=== PATIENT | female | born 1960 | race Caucasian/White ===

== ENCOUNTER → 2020-11-04 13:21 | Outpatient (CLI) | payer OTHER, SELFPAY ==
[2020-11-06 13:05] LABS: HPV Reflexed? NOT INDICATED
== END ==
PROVIDERS: Visit Provider Obstetrics & Gynecology
DX: Z12.4 Encounter for screening for malignant neoplasm of cervix (principal)
CPT/HCPCS: 88175; G0145

== ENCOUNTER 2020-11-23 05:52 | Day surgery (SDC) | payer OTHER, SELFPAY ==
--- NOTE | 2020-11-22 12:35 | HP.PCM_ITS ---
History and Physical Date of Admission: 11/23/20 Surgical History and Physical Lizzy Barone, a 60 year old female 0 1 0 1 2, presents for D and C and hysteroscopy on November 23, 2020 at 10:30. -- [employer] Bleeding -- Postmenopausal bleeding which began 10-15-20. Lizzy claims it started after taking natural supplement for anxiety and has been present 5 days. It is located in the Uterus. Associated signs and symptoms are cramping. Additional comments are: took Ashwagandha supplement for anxiety. MEDICATIONS HISTORY: Patient is also takin. One A Day Women's DHA [id number] mg-mcg-mg Combo Pack, daily ALLERGIES: NKA Infections - Chicken pox Illnesses - anosmia, infertility and Kallmann's syndrome Accidents - no injuries of consequence Hospitalizations - see surgery Review of Systems: GENERAL - Denies fever, or chills SKIN - Denies skin changes EYES - wears contact lenses EARS - Denies difficulty hearing NOSE - Denies nasal congestion or bleeding MOUTH - Denies sore throat or difficulty swallowing NECK - Denies pain or swelling RESPIRATORY - Denies shortness of breath or wheezing CARDIOVASCULAR - Denies palpitations or chest pain GASTROINTESTINAL - Denies nausea, vomiting, diarrhea, constipation GENITOURINARY - frequency MUSCULOSKELETAL - Denies joint or muscle pain NEUROLOGICAL - Denies localized numbness or weakness PSYCHIATRIC - Denies depression or anxiety ENDOCRINE - Denies heat or cold intolerance, weight loss or gain HEMATO-IMMUNOLOGIC - Denies excesive bleeding with cuts SOCIAL HISTORY: Alcohol Use - socially Smoking - denies smoking Diet - balanced Diet Lifestyle - moderate stress lifestyle Exercise - minimal Seat Belt Use - always Employer - [employer] Job Description - [employer] Illicit Drug Use - denies use of street drugs Sexual Activity - single sexual partner and Hours Worked - 36 Spouse-Sig Other Name - JOSE Spouse-Sig Other Occupation - [employer] Children Name(s) - MAMI ARGUETA Control - postmenopausal FAMILY HISTORY: Family history of colonic polyps. Maternal history of lung cancer. Father: anerysm and hrt dx and Renal CA. Sister: colon cancer. Maternal Grandfather: throat cancer. MENSTRUAL HISTORY: LMP Known?- DefiniteAmount/Duration - light, Regularity - Irregular, Frequency - 28 days, LMP - 10/15/20, Age Onset Menarche - 20 PAST PREGNANCIES: Total Pregnancies - 1; Full Term Pregnancies - 0; Premature - 1; Abortions, Induced - 0; Abortions, Spontaneous - 0; Ectopics - 0; Multiple Births - 1; Living Children - 2 SURGICAL HISTORY: 1. 11/20/1991 cholecystectomy ; [facility] - 2. 05/03/1991 ; [facility] - DISTRESS AT 30 WKS PHYSICAL EXAM BP- 168/104 Sitting, Right arm, large cuff Weight- 227.67649 lbs Height- 65.25 inch BMI:37.66 CONSTITUTIONAL - NAD, well nourished, and well developed HEENT - Normocephalic, PERRLA, EOMI NECK - no nodes, no nuchal rigidity and thyroid normal size and texture LUNGS - CTA x2 without wheezes, crackles or rales CARDIAC - Regular rate and rhythm without rubs, murmurs, or gallops ABDOMEN - Without hepatosplenomegaly, distention, masses, rebound, or guarding; normal bowel sounds, no hernias and Well healed surgical incision lower abdomen. EXTREMITIES - No edema or calf tenderness NEUROLOGICAL - Cranial nerves II-XII grossly intact PSYCHIATRIC - A and O to time, place, person, mood and affect External Genitial Vagina - non-tender without lesions Urethra/Urethral Meatus - non-tender Bladder - non-tender Vagina - no palpable lesions Cervix - without cervical motion tenderness and has normal size and features without evident lesions Uterus - 5-6 cm in size, mobile and nontender Adnexa - clear without massess or tenderness ASSESSMENT/PLAN: Postmenopausal Bleeding EMBx inconclusive. Large submucous fibroid and unable to evaluate endometrium with u/s. Will proceed with D and C and H/S. Discussed RBAs and all questions answered.
--- NOTE | 2020-11-23 | EMB_PTH ---
PATIENT: JADEN BROOKS LOC: [facility] [place] U#:[id number] AGE/SX: 60/F ROOM: RE11/23/[address]: Dr. Adams Hollins MD : [id number] BED: DIS: 11/23/2020 SPEC #: [id number] RECD: 11/23/20 08:01 STATUS: SHIRA REKrista #: [id number] CHERIE: 11/23/20 00:[address]: Adams Hollins DEPT: SURGICAL PATHOLOGY RECD BY: Niels Valdez ENTERED: 11/23/20 08:01 SP TYPE: ENDOM BX/C POOJA DR: Dr. Theresa Cantor, DO Tissues: Endometrium, NOS Procedures: Surgery Specimen Level IV HEADER OPERATION: Hysteroscopy, dilation and curettage PRE-OP DIAGNOSIS: INSTALLATION TECH bleeding TISSUE SUBMITTED: Endometrial curettings MICROSCOPIC DIAGNOSIS Endometrium, curettings: Strips of benign superficial inactive endometrium. Detached fragments of benign squamous mucosa. AM:yarelis 11/24/2020 MICROSCOPIC DESCRIPTION Slides are reviewed. GROSS DESCRIPTION Received in fixative is one container labeled with the patient's name and designated endometrial curettings. The specimen consists of multiple irregular fragments of red-hayes soft tissue that in aggregate measure 1.5 x 1 x <0.1 cm. The specimen is totally submitted in one cassette. / AM:yarelis 11/23/2020 TC:5 CPT: 71256
[2020-11-23 06:14] VITALS: BP 141/81; PULSE 95; RESP 16; TEMP 36.7; O2SAT 99; BMI 37.8
[2020-11-23] MEDS: Lactated Ringers 1,000 ML 100 ML IV (06:32)
[2020-11-23] MEDS: Cefotetan 2 GM in 0.9% NS 100 ML IV (07:15)
[2020-11-23 07:45] VITALS: BP 116/75; BP 141/81; PULSE 85; RESP 16; TEMP 36; O2SAT 94
[2020-11-23 07:50] VITALS: BP 114/68; BP 141/81; PULSE 85; RESP 16; O2SAT 94
[2020-11-23 07:55] VITALS: BP 113/71; BP 141/81; PULSE 85; RESP 16; O2SAT 94
[2020-11-23 08:00] VITALS: BP 109/64; BP 141/81; PULSE 83; RESP 16; TEMP 36.5; O2SAT 94
--- NOTE | 2020-11-23 08:12 | PCM.OPRPT ---
Report of Operation Date of Procedure: 11/23/20 Pre-Operative Diagnosis: Postmenopausal Bleeding, Submucous Fibroids Post-Operative Diagnosis: Postmenopausal Bleeding, Submucous Fibroids Surgery/Procedure Performed:: Diagnostic Hysteroscopy and Dilation and Curettage Description of Surgical Findings:: 8 cm endometrial cavity without polyps noted. There was approximately 3 to 4 cm right anterior submucous fibroid which protruded into the uterine cavity. Endometrium appeared atrophic. Cervix was high in the vagina which would make vaginal hysterectomy without robotic assistance infeasible. Type of Anesthesia:: MAC Anesthesiologist: Ronald Romo Estimated Blood Loss (mL): Minimal Fluids Replaced: Crystalloid Description of Procedure: Surgeon: Adams Hollins MD, FACOG Indications: This is a 60 year old patient who has the above diagnosis. The patient has been counseled regarding the risk and indications of this procedure including the possibility of bleeding, infection, and injury to surrounding structures such as bowel bladder. All questions were answered and we consider the patient well-informed. Procedure: The patient was taken to the operating room where after induction of general anesthesia, she was placed in the dorsolithotomy position and prepped and draped in the usual sterile fashion. The bladder was drained of approximately 125 cc of clear yellow urine with a catheter. Anterior cervix was grasped with the tenaculum and dilated to about 4-5 mm. A 3 mm hysteroscope was placed in the uterus of the above findings were noted. Cervix was dilated to about 7-8 mm and uterus was gently curetted removing all contents. Hysteroscope was reinserted and all material was noted to be removed. In the course of the procedure approximately 100 cc of saline distending media was used and virtually all of this was recovered. Patient tolerated procedure well was taken to recovery room in satisfactory condition sponge instrument and needle counts were all reportedly correct. Estimated blood loss for the case was minimal. Specimens to pathology was endometrial curettings Complications: None - Complications None - Admit VTE Documentation VTE Present on Admission: Yes VTE Mechan Device Prophylaxis: SCD's VTE Pharm Prophylaxis ordered?: Yes
--- NOTE | 2020-11-23 08:19 | DCINST_ITS ---
Discharge Diet: No Restrictions Discharge Activity: Return to Normal Activity, May Shower, May Take a Tub Bath May resume sexual activity in: 1-2 weeks Call your doctor if you observe: Fever of 101 or Higher, Inability to urinate, Inability to have a bowel movement, Using more than one pad per hour Allergies/Adverse Reactions: Allergies No Known Allergies Allergy (Verified 11/23/20 06:12) Medications to take at Discharge Ibuprofen [Motrin] 600 mg PO Q6H PRN PRN 11/16/20 Primary Care Physician: Theresa Cantor DO [Primary Care Provider] - Test Results: Test results from this visit will be discussed in further detail at your follow- up appointment, if applicable. Please Follow Up With: Adams Hollins MD When: 2-3 weeks
[2020-11-23 08:38] VITALS: BP 129/81; BP 141/81; PULSE 82; RESP 18; TEMP 36.7; O2SAT 100
== END 2020-11-23 08:45 | disposition home or self-care (01) ==
LOC: SDC 05:53 → AC 05:53
PROVIDERS: Referring Provider Obstetrics & Gynecology; Visit Provider Obstetrics & Gynecology
PROC: 0UDB8ZZ Extraction of Endometrium, Via Natural or Artificial Opening Endoscopic (ICD-10-PCS; CPT 58558; principal; 2020-11-23 07:05)
DX: D25.9 Leiomyoma of uterus, unspecified (principal); N95.0 Postmenopausal bleeding; Z20.828 Contact with and (suspected) exposure to other viral communicable diseases
CPT/HCPCS: 58558; 86850; 86900; 86901; 87426; 88305; C9803; J7120; J2405

== ENCOUNTER 2021-03-11 07:45 | Outpatient (RCR) | payer OTHER, SELFPAY | END 2021-04-27 23:59 | LOC: IMMUN 07:45 | PROVIDERS: Referring Provider Family Medicine; Visit Provider Family Medicine | DX: Z23 Encounter for immunization (principal) | CPT/HCPCS: 0001A; 0002A; 91300 ==

== ENCOUNTER → 2022-07-21 | Outpatient (CLI) | payer OTHER, SELFPAY | END | disposition home or self-care (01) | LOC: LABSPEC 14:52 | PROVIDERS: Visit Provider Obstetrics & Gynecology | DX: R30.0 Dysuria (principal) | CPT/HCPCS: 87077; 87086; 87088; 87186 ==